=== PATIENT | male | born 1965 | race Caucasian/White ===

== ENCOUNTER 2024-10-22 19:21 | Emergency (ER) | payer BC ==
[~2024-10-22 19:21] MED LIST: Iopamidol 370 76% 100 ML VIAL ONE
[2024-10-22 20:11] LABS: #Basophils 0.10 10x3/uL (0.0-0.2); #Eosinophils 0.08 10x3/uL (0.0-0.5); #Monocytes 2.03 10x3/uL (0.0-1.1); #Neutrophils 13.20 10x3/uL (1.5-8.4); %Basophils 0.6 % (0.0-2.0); %Eosinophils 0.5 % (0.0-6.0); %Lymphocytes 4.7 % (18.0-47.0); %Monocytes 12.4 % (0.0-10.0); %Neutrophils 80.8 % (40.0-75.0); Hematocrit 24.8 % (38.8-50.0); Hemoglobin 7.9 g/dL (13.5-17.5); Mean Corpuscular Hemoglobin 29.9 pg (27.0-33.0); Mean Corpuscular Volume 93.9 fL (81.2-95.1); Platelet Count 460 10x3/uL (150-450); Red Blood Cell (RBC) Count 2.64 10x6/uL (4.32-5.72); White Blood Cell (WBC) Count 16.34 10x3/uL (3.5-10.5)
[2024-10-22 20:19] LABS: Actual Bicarbonate (HCO3v) 22.7 mEq/L (22-28); Analyzer IN Cardio CS ER; Base Excess -2.7 mEq/L (-2 - +2); Calcium, Ionized (venous) 1.16 mmol/L (1.16-1.32); Chloride (VBG) 102 mmol/L (98-106); Critical Notified By: CP.PH; Hematocrit-VBG 26 % (42.0-52.0); Hemoglobin (Hb) 9.0 g/dL (13.1-17.2); Potassium (VBG) 4.13 mmol/L (3.70-5.30); Puncture Site Other Site; RapidComm Collect By LAB.YY; Sodium 136 mmol/L (133-146)
[2024-10-22 20:24] LABS: INR-International Normal Ratio 1.5; PTT 28.7 sec (22.0-33.0); Prothrombin Time 16.1 sec (9.5-12.1)
[2024-10-22 20:27] LABS: ALT (SGPT) 24 U/L (Less than 45); AST (SGOT) 40 U/L (11-34); Albumin 2.5 g/dL (3.1-4.5); Alkaline Phosphatase 706 U/L (40-110); Anion Gap 17 mmol/L (10-20); BUN (Urea Nitrogen) 23 mg/dL (8.4-25.7); Bilirubin, Total 0.8 mg/dL (0.3-1.2); Calc. Creatinine Clearance 0 mL/min (70-130); Calcium 8.5 mg/dL (7.8-10.44); Carbon Dioxide 23 mmol/L (23-31); Chloride 102 mmol/L (98-107); Globulin 4.0 g/dL (2.4-3.5); Glucose 123 mg/dL (80-115); Potassium 4.2 mmol/L (3.5-5.1); Sodium 138 mmol/L (136-145)
[2024-10-22 20:34] LABS: Troponin I 0.218 ng/mL (< 0.028)
[2024-10-23 00:17] LABS: Hematocrit 26.3 % (38.8-50.0); Hemoglobin 8.3 g/dL (13.5-17.5)
[2024-10-23] MEDS ORDERED: HYDROmorphone 0.5 MG/0.5 ML SYRINGE ONE (02:16)
== END 2024-10-23 03:01 | disposition short-term general hospital (02) ==
LOC: CSHERS 19:21
DX: I95.9 Hypotension, unspecified (principal); D64.9 Anemia, unspecified; C17.0 Malignant neoplasm of duodenum; I10 Essential (primary) hypertension; I25.2 Old myocardial infarction; I25.10 Atherosclerotic heart disease of native coronary artery without angina pectoris; Z95.5 Presence of coronary angioplasty implant and graft; Z79.899 Other long term (current) drug therapy
CPT/HCPCS: 36415; 71045; 74178; 80053; 82805; 83605; 83880; 84484; 85025; 85610; 85730; 86141; 86850; 86900; 86901; 87040; 93005; 94760; 96374; 96375; 96376; J1171; J3010; Q9967